=== PATIENT | male | born 2000 | race American Indian/Alaskan Native ===

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

== ENCOUNTER 2018-06-04 13:43 | Emergency (ER) | payer SELFPAY ==
[2018-06-04 14:14] VITALS: BP 141/76
--- NOTE | 2018-06-04 14:40 | Emergency Department Report ---
Chief Complaint: Urogenital-Male Stated Complaint: STD CHECK UP Time Seen by Provider: 06/04/18 14:10 - HPI History of Present Illness: This is a 18-year-old male nontoxic, well in apperance with no signs of distress presents to the ED for a STD check. Patient denies any penile discharge. Patient stated had a sexual intercourse and is concerned. Denies any symptoms. Denies any urianry symptoms. Denies any chest pain, shortness of breathe, fever, chills, headache, nausea or vomiting. Denies any allergies or PMH. - Exam Vital Signs: Vital Signs 06/04/18 14:13 Temperature 98.2 F Pulse Rate 76 Respiratory 20 Rate Blood Pressure 141/76 O2 Sat by Pulse 97 Oximetry MSE screening note: Focused history and physical exam performed. Due to findings the following was ordered: ED Medical Decision Making - Medical Decision Making This is a 18-year-old male that presents with a nonmedical emergency. Patient stated is asymptotic. Patient was approached by reg but patient refused to pay copay. Patient was educated and instructed of alternative ways to be tested and treated. Patient was instructed to Follow-up with a dentist doctor in 3-5 days or if symptoms worsen and continue return to emergency room as soon as possible. At time of discharge, the patient does not seem toxic or ill in appearance. No acute signs of distress noted. Patient agrees to discharge treatment plan of care. No further questions noted by the patient. ED Disposition for MSE Clinical Impression: Possible exposure to STD Disposition: Z-07 MED SCREENING EXAM-LEFT Is pt being admited?: No Does the pt Need Aspirin: No Condition: Stable Instructions: Safe Sex (ED) Additional Instructions: Follow-up with a primary care doctor, [facility], or [facility] doctor in 3-5 days or if symptoms worsen and continue return to emergency room as soon as possible. Referrals: LITTLE TURCIOS MD [Primary Care Provider] - 3-5 Days MYRNA HUFF MD [Referring] - 3-5 Days SHARMIN PASTOR MD [Staff Physician] - 3-5 Days [facility] [Outside] - 3-5 Days [facility] [Outside] - 3-5 Days
== END 2018-06-04 15:18 | disposition left against medical advice (07) ==
LOC: ED 13:43
DX: Z20.2 Contact with and (suspected) exposure to infections with a predominantly sexual mode of transmission (principal)
CPT/HCPCS: 99281

== ENCOUNTER 2018-07-27 01:41 | Emergency (ER) | payer OTHER ==
[2018-07-27 02:31] LABS: Bilirubin,Urine NEG (Negative); Blood,Urine NEG (Negative); Color,Urine Yellow (Yellow); Mucus,Urine 1+ /HPF; Protein,Urine <15 mg/dL mg/dL (Negative)
[2018-07-27 02:32] LABS: Basophils # (Auto) 0.1 K/mm3 (0.0-0.1); Basophils % (Auto) 0.8 % (0.0-1.8); Eosinophils # (Auto) 0.2 K/mm3 (0.0-0.4); Eosinophils % (Auto) 2.3 % (0.0-4.3); Hematocrit 41.7 % (35.5-45.6); Hemoglobin 14.1 gm/dl (11.8-15.2); Lymphocytes # (Auto) 3.2 K/mm3 (1.2-5.4); Lymphocytes % (Auto) 41.1 % (13.4-35.0); Mean Corpuscular HGB Conc 34 % (32-34); Mean Corpuscular Volume 88 fl (84-94); Monocytes # (Auto) 0.8 K/mm3 (0.0-0.8); Monocytes % (Auto) 10.2 % (0.0-7.3); Platelet Count 225 K/mm3 (140-440); Red Blood Count 4.75 M/mm3 (3.65-5.03); Red Cell Distribution Width 13.1 % (13.2-15.2)
[2018-07-27 02:52] LABS: BUN/Creatinine Ratio 11; Blood Urea Nitrogen 8 mg/dL (9-20); Calcium 9.4 mg/dL (8.4-10.2); Hemolysis Index 13
--- NOTE | 2018-07-27 03:43 | Emergency Department Report ---
ED Psych HPI - General Chief Complaint: Psych Stated Complaint: MH EVAL Time Seen by Provider: 07/27/18 02:41 Source: patient Mode of arrival: Ambulatory - History of Present Illness Initial Comments: Mr. Holm is a 18 yo male with hx of schizoaffective and bipolar disorder. He has had auditory and visual hallucinations. He asked his mother to call 911 because he felt as if he was yelling in his sleep. He saw a person working toward his brother. He had a lapse in health insurance. He does not have a current psychiatrist. He takes Invega monthly injections. Denies SI/HI. Denies physical complaints. He arrived via EMS. MD Complaint: other (hallucinations) -: Last night Associated Psychiatric Symptoms: auditory hallucinations, visual hallucinations History of same: Yes Quality: intermittent Worsens With: none Associated Symptoms: denies other symptoms - Related Data Home Medications Medication Instructions Recorded Confirmed Last Taken Divalproex Sodium [Depakote] 500 mg PO BID 09/11/17 07/27/18 1 Month Ago ~06/27/18 diphenhydrAMINE [Benadryl CAP] 50 mg PO QHS 09/11/17 07/27/18 1 Month Ago ~06/27/18 risperiDONE [RisperiDONE] 3 mg PO QDAY 09/11/17 07/27/18 1 Month Ago ~06/27/18 Paliperidone Palmitate [Invega 39 mg IM QMONTH 07/27/18 07/27/18 1 Month Ago Sustenna] ~06/27/18 Allergies Allergy/AdvReac Type Severity Reaction Status Date / Time No Known Allergies Allergy Unverified 09/11/17 17:39 ED Review of Systems ROS: Stated complaint: MH EVAL Other details as noted in HPI Comment: All other systems reviewed and negative Constitutional: denies: fever, malaise ED Past Medical Hx - Past Medical History Previous Medical History?: Yes Hx Psychiatric Treatment: Yes (paranoid schizophrenia) Additional medical history: Schizoaffective disorder and bipolar affective disorder - Surgical History Past Surgical History?: Yes Additional Surgical History: tonsillectomy - Social History Smoking Status: Current Every Day Smoker Substance Use Type: None - Medications Home Medications: Home Medications Medication Instructions Recorded Confirmed Last Taken Type Divalproex Sodium [Depakote] 500 mg PO BID 09/11/17 07/27/18 1 Month Ago History ~06/27/18 diphenhydrAMINE [Benadryl CAP] 50 mg PO QHS 09/11/17 07/27/18 1 Month Ago History ~06/27/18 risperiDONE [RisperiDONE] 3 mg PO QDAY 09/11/17 07/27/18 1 Month Ago History ~06/27/18 Paliperidone Palmitate [Invega 39 mg IM QMONTH 07/27/18 07/27/18 1 Month Ago History Sustenna] ~06/27/18 ED Physical Exam - General Limitations: No Limitations General appearance: alert, in no apparent distress - Head Head exam: Present: atraumatic, normocephalic - Eye Eye exam: Present: normal appearance - ENT ENT exam: Present: mucous membranes moist - Neck Neck exam: Present: normal inspection, full ROM - Respiratory Respiratory exam: Present: normal lung sounds bilaterally. Absent: respiratory distress, wheezes, rhonchi - Cardiovascular Cardiovascular Exam: Present: regular rate, normal rhythm, normal heart sounds. Absent: systolic murmur, diastolic murmur, rubs, gallop - GI/Abdominal GI/Abdominal exam: Present: soft, normal bowel sounds. Absent: distended, tenderness, guarding, rebound - Rectal Rectal exam: Present: deferred - Extremities Exam Extremities exam: Present: normal inspection - Neurological Exam Neurological exam: Present: alert, oriented X3 - Psychiatric Psychiatric exam: Present: normal affect, normal mood, other (calm insightful articulate). Absent: homicidal ideation, suicidal ideation - Skin Skin exam: Present: warm, dry, intact, normal color. Absent: rash ED Medical Decision Making - Lab Data Result diagrams: 07/27/18 02:19 07/27/18 02:19 Laboratory Results - last 24 hr 07/27/18 07/27/18 07/27/18 02:00 02:19 02:19 WBC RBC Hgb Hct MCV MCH MCHC RDW Plt Count Lymph % (Auto) [place] % (Auto) Eos % (Auto) Baso % (Auto) Lymph # [place] # Eos # Baso # Seg Neutrophils % Seg Neutrophils # Sodium Potassium Chloride Carbon Dioxide Anion Gap BUN Creatinine Estimated GFR BUN/Creatinine Ratio Glucose Calcium Urine Color Yellow Urine Turbidity Clear Urine pH 5.0 Ur Specific [place] 1.017 Urine Protein <15 mg/dl Urine Glucose (UA) Neg Urine Ketones Neg Urine Blood Neg Urine Nitrite Neg Urine Bilirubin Neg Urine Urobilinogen 4.0 Ur Leukocyte Esterase Mod Urine WBC (Auto) 33.0 H Urine RBC (Auto) 3.0 U Epithel Cells (Auto) < 1.0 Urine Mucus 1+ Salicylates < 0.3 L Acetaminophen < 5.0 L Plasma/Serum Alcohol 07/27/18 07/27/18 07/27/18 02:19 02:19 02:19 WBC 7.8 RBC 4.75 Hgb 14.1 Hct 41.7 MCV 88 MCH 30 MCHC 34 RDW 13.1 L Plt Count 225 Lymph % (Auto) 41.1 H [place] % (Auto) 10.2 H Eos % (Auto) 2.3 Baso % (Auto) 0.8 Lymph # 3.2 [place] # 0.8 Eos # 0.2 Baso # 0.1 Seg Neutrophils % 45.6 Seg Neutrophils # 3.6 Sodium 139 Potassium 3.9 Chloride 101.8 Carbon Dioxide 23 Anion Gap 18 BUN 8 L Creatinine 0.7 L Estimated GFR > 60 BUN/Creatinine Ratio 11 Glucose 100 Calcium 9.4 Urine Color Urine Turbidity Urine pH Ur Specific [place] Urine Protein Urine Glucose (UA) Urine Ketones Urine Blood Urine Nitrite Urine Bilirubin Urine Urobilinogen Ur Leukocyte Esterase Urine WBC (Auto) Urine RBC (Auto) U Epithel Cells (Auto) Urine Mucus Salicylates Acetaminophen Plasma/Serum Alcohol < 0.01 - Medical Decision Making Mr. Holm is a 18 yo male with hx of bipolar disorder,schizophrenia, schizoaffective disorder who presents with auditory and visual hallucinations. He appears well. Does not appear to respond to internal stimuli. Normal mental status exam. He is medically clear for psychiatric care In my medical opinion, he is appropriate for outpatient care. No indication for acute inpatient psychiatric care On mental health lead custodian agreed that further care is not indicated at this time dc'd home Critical care attestation.: If time is entered above; I have spent that time in minutes in the direct care of this critically ill patient, excluding procedure time. ED Disposition Clinical Impression: Schizoaffective disorder, Bipolar disorder Disposition: DC-01 TO HOME OR SELFCARE Is pt being admited?: No Does the pt Need Aspirin: No Condition: Stable Instructions: Schizoaffective Disorder (ED), Bipolar Disorder (ED) Forms: Work/School Release Form(ED)
[2018-07-27 04:06] LABS: Amphetamine Screen,Urine PRESUMPTIVE NEGATIVE; Benzodiazepines Screen,Urine PRESUMPTIVE NEGATIVE; Cocaine Screen,Urine PRESUMPTIVE NEGATIVE; Methadone Screen,Urine PRESUMPTIVE NEGATIVE; Opiate Screen,Urine PRESUMPTIVE NEGATIVE
[2018-07-27 04:19] LABS: Cannabinoid Screen,Urine PRESUMPTIVE POSITIVE
== END 2018-07-27 04:47 | disposition home or self-care (01) ==
LOC: EEVIPCON 01:41 → ED 01:41
DX: F25.9 Schizoaffective disorder, unspecified (principal); F31.9 Bipolar disorder, unspecified; F17.200 Nicotine dependence, unspecified, uncomplicated
CPT/HCPCS: 36415; 80048; 80307; 81001; 85025; 99284; G0480; 80320

== ENCOUNTER 2019-02-23 15:02 | Emergency (ER) | payer SELFPAY | END 2019-02-23 17:30 | disposition left against medical advice (07) | LOC: ED 15:02 | DX: R25.1 Tremor, unspecified (principal); Z53.21 Procedure and treatment not carried out due to patient leaving prior to being seen by health care provider ==

== ENCOUNTER 2019-03-02 12:32 | Emergency (ER) | payer SELFPAY | END 2019-03-02 17:06 | disposition home or self-care (01) | LOC: ED 12:32 | CPT/HCPCS: 36415; 80048; 80164; 85025; 93005; 93010 ==

== ENCOUNTER 2021-07-05 11:44 | Emergency (ER) | payer MEDICAID ==
[2021-07-05 13:40] VITALS: BP 131/94
== END 2021-07-05 17:44 | disposition left against medical advice (07) ==
LOC: ED 11:44
DX: Z13.30 Encounter for screening examination for mental health and behavioral disorders, unspecified (principal); Z53.21 Procedure and treatment not carried out due to patient leaving prior to being seen by health care provider